=== PATIENT | female | born 1985 | race Native Hawaiian/Other Pacific Islander ===

== ENCOUNTER 2018-07-03 08:50 | Emergency (ER) | payer OTHER ==
[~2018-07-03] VITALS: Ht 149.9 cm; Wt 79.4 kg
[2018-07-03 09:00] VITALS: TEMP 98.1
[2018-07-03 10:30] VITALS: BP 121/72
== END 2018-07-03 10:30 | disposition home or self-care (01) ==
LOC: ED 08:50
DX: J02.9 Acute pharyngitis, unspecified (principal)
CPT/HCPCS: 87502; 87651; 99283